=== PATIENT | male | born 1935 | race African-American/Black ===

== ENCOUNTER → 2017-09-27 | Outpatient (CLI) | payer MEDICARE, MEDICAID ==
[~2017-09-27] VITALS: Ht 180.3 cm; Wt 98.0 kg
[~2017-09-27] MED LIST: ALLO100T PO; ASPI-1182 PO; CHOL200016 PO; LEVE250T2 PO; LEVE250T55 PO; MULT-1259 PO; OLME1TAB28 PO; ROSU20 PO; TAMS0.4C32 PO
[2017-09-27 10:13] VITALS: BP 142/75
== END | disposition home or self-care (01) ==
LOC: SRCNTR 10:11
PROVIDERS: ATTEND Internal Medicine Cardiovascular Disease
DX: I11.9 Hypertensive heart disease without heart failure (principal); E78.00 Pure hypercholesterolemia, unspecified; G40.909 Epilepsy, unspecified, not intractable, without status epilepticus; M10.9 Gout, unspecified; Z86.73 Personal history of transient ischemic attack (TIA), and cerebral infarction without residual deficits
CPT/HCPCS: G0463

== ENCOUNTER → 2018-01-11 | Outpatient (CLI) | payer MEDICARE ==
[~2018-01-11] MED LIST changes: -CHOL200016 PO; +CHOL200059 PO
[2018-01-11 11:05] LABS: APPEARANCE,URINE CLEAR (CLEAR); BILIRUBIN,URINE NEGATIVE (NEGATIVE); GLUCOSE, URINE (UA) NEGATIVE (NEGATIVE); KETONES,URINE NEGATIVE (NEGATIVE); LEUKOCYTE ESTERASE ,URINE NEGATIVE (NEGATIVE); NITRATE,URINE NEGATIVE (NEGATIVE); PH,URINE 5.5 (5.0-8.0); PROTEIN,URINE SEE CONFIRM (NEGATIVE)
[2018-01-11 11:24] LABS: ALBUMIN 3.9 g/dL (3.4-5.0); BILIRUBIN,TOTAL 0.4 mg/dL (0.1-1.0); CREATININE 2.23 mg/dL (0.60-1.30); POTASSIUM 4.2 mmol/L (3.5-5.1); THYROID STIMULATING HORMONE 1.95 uIU/mL (0.36-3.74); TOTAL PROTEIN, SERUM 7.8 g/dL (6.4-8.2)
[2018-01-11 11:33] LABS: PROSTATE SPECIFIC ANTIGEN 4.64 ng/mL (0.00-4.00)
[2018-01-11 12:14] LABS: BACTERIA,URINE None Seen /HPF (None Seen); OCCULT BLOOD,URINE TRACE (NEGATIVE); RBC,URINE 0-2 /HPF (0-2); SULFOSALICYLIC ACID,URINE Trace (Negative); WBC,URINE None Seen /HPF (0-5)
== END | disposition home or self-care (01) ==
LOC: LABPV 09:50
PROVIDERS: ATTEND Internal Medicine Cardiovascular Disease
DX: I10 Essential (primary) hypertension (principal); N40.0 Benign prostatic hyperplasia without lower urinary tract symptoms; Z79.899 Other long term (current) drug therapy
CPT/HCPCS: 36415; 80053; 80061; 81001; 81002; 84153; 84443; G0482

== ENCOUNTER → 2018-04-01 | Outpatient (CLI) | payer MEDICARE ==
[~2018-04-01] VITALS: Ht 180.3 cm; Wt 96.5 kg
[~2018-04-01] MED LIST changes: -ROSU20 PO; +ROSU20TA23 PO
[2018-04-01 09:13] VITALS: BP 145/81
== END | disposition home or self-care (01) ==
LOC: SRCNTR 09:12
PROVIDERS: ATTEND Hospitalist
DX: E78.5 Hyperlipidemia, unspecified (principal); I10 Essential (primary) hypertension; N40.1 Benign prostatic hyperplasia with lower urinary tract symptoms; M10.9 Gout, unspecified
CPT/HCPCS: G0463

== ENCOUNTER → 2019-02-14 | Outpatient (CLI) | payer MEDICARE, MEDICAID ==
[~2019-02-14] MED LIST changes: -LEVE250T2 PO; -LEVE250T55 PO; -MULT-1259 PO; -TAMS0.4C32 PO
[2019-02-14 12:28] LABS: BASOPHILS % (AUTO) 0.6 % (0.0-2.0); EOSINOPHILS % (AUTO) 1.8 % (1.0-6.0); HEMATOCRIT 33.5 % (41-53); HEMOGLOBIN 11.1 g/dL (13.5-17.5); LYMPHOCYTES # (AUTO) 0.8 K/uL (1.0-4.8); LYMPHOCYTES % (AUTO) 29.5 % (22.0-44.0); MEAN CORPUSCULAR HGB CONC 33.1 G/dL (31.0-37.0); MEAN CORPUSCULAR VOLUME 88 fL (80-100); MONOCYTES # (AUTO) 0.3 K/uL (0.1-1.0); MONOCYTES % (AUTO) 10.8 % (2.0-9.0); NEUTROPHILS # (AUTO) 1.6 K/uL (1.8-7.7); NEUTROPHILS % (AUTO) 57.3 % (40.0-70.0); PLATELET COUNT (AUTO) 155 K/uL (150-450); RED BLOOD CELL COUNT(AUTO) 3.82 MIL/uL (4.50-5.90); RED CELL DISTRIBUTION WIDTH 15.3 % (11.5-14.5)
[2019-02-14 12:34] LABS: HEMOGLOBIN A1C 5.6 % (4.5-6.2)
[2019-02-14 12:53] LABS: ALBUMIN 3.6 g/dL (3.4-5.0); BILIRUBIN,TOTAL 0.5 mg/dL (0.1-1.0); CALCIUM, TOTAL 9.2 mg/dL (8.8-10.5); CHOL/HDL RATIO 2.9 (4.2-7.3); CREATININE 2.93 mg/dL (0.60-1.30); FREE T4 (FREE THYROXINE) 0.81 ng/dL (0.76-1.46); POTASSIUM 3.9 mmol/L (3.5-5.1); THYROID STIMULATING HORMONE 1.44 uIU/mL (0.36-3.74); TOTAL PROTEIN, SERUM 7.4 g/dL (6.4-8.2)
[2019-02-14 13:01] LABS: PROSTATE SPECIFIC ANTIGEN 4.24 ng/mL (0.00-4.00)
== END | disposition home or self-care (01) ==
LOC: LABPV 09:40
PROVIDERS: ATTEND Hospitalist
DX: Z12.5 Encounter for screening for malignant neoplasm of prostate (principal); I11.0 Hypertensive heart disease with heart failure; I50.9 Heart failure, unspecified; E78.00 Pure hypercholesterolemia, unspecified; Z79.899 Other long term (current) drug therapy
CPT/HCPCS: 36415; 80053; 80061; 83036; 84439; 84443; 85025; G0103; 84153

== ENCOUNTER → 2019-03-30 | Outpatient (CLI) | payer MEDICARE, MEDICAID ==
[~2019-03-30] VITALS: Ht 177.8 cm; Wt 93.0 kg
[~2019-03-30] MED LIST changes: +ASPI-1111 PO; -ASPI-1182 PO; +CHOL200016 PO; -CHOL200059 PO
[2019-03-30 12:15] VITALS: BP 109/69
== END | disposition home or self-care (01) ==
LOC: SRCNTR 12:14
PROVIDERS: ATTEND Hospitalist
DX: I12.9 Hypertensive chronic kidney disease with stage 1 through stage 4 chronic kidney disease, or unspecified chronic kidney disease (principal); N18.9 Chronic kidney disease, unspecified; E78.5 Hyperlipidemia, unspecified; M10.9 Gout, unspecified; N40.1 Benign prostatic hyperplasia with lower urinary tract symptoms; G40.909 Epilepsy, unspecified, not intractable, without status epilepticus
CPT/HCPCS: G0463

== ENCOUNTER → 2019-04-24 | Outpatient (CLI) | payer MEDICARE, MEDICAID ==
[2019-04-24 12:33] LABS: BASOPHILS % (AUTO) 0.5 % (0.0-2.0); EOSINOPHILS % (AUTO) 2.3 % (1.0-6.0); HEMATOCRIT 34.8 % (41-53); HEMOGLOBIN 11.5 g/dL (13.5-17.5); LYMPHOCYTES % (AUTO) 33.4 % (22.0-44.0); MEAN CORPUSCULAR HEMOGLOBIN 29.1 pg (26.0-34.0); MEAN CORPUSCULAR HGB CONC 32.9 G/dL (31.0-37.0); MEAN CORPUSCULAR VOLUME 88 fL (80-100); MONOCYTES # (AUTO) 0.3 K/uL (0.1-1.0); MONOCYTES % (AUTO) 8.4 % (2.0-9.0); NEUTROPHILS # (AUTO) 1.7 K/uL (1.8-7.7); NEUTROPHILS % (AUTO) 55.4 % (40.0-70.0); PLATELET COUNT (AUTO) 156 K/uL (150-450); RED BLOOD CELL COUNT(AUTO) 3.94 MIL/uL (4.50-5.90); RED CELL DISTRIBUTION WIDTH 15.5 % (11.5-14.5)
[2019-04-24 12:50] LABS: HEMOGLOBIN A1C 5.9 % (3.8-5.6)
[2019-04-24 12:56] LABS: ALBUMIN 3.9 g/dL (3.4-5.0); BILIRUBIN,TOTAL 0.4 mg/dL (0.1-1.0); CALCIUM, TOTAL 9.8 mg/dL (8.8-10.5); CHOL/HDL RATIO 3.3 (4.2-7.3); CREATININE 2.43 mg/dL (0.60-1.30); FREE T4 (FREE THYROXINE) 0.77 ng/dL (0.76-1.46); POTASSIUM 4.2 mmol/L (3.5-5.1); THYROID STIMULATING HORMONE 1.73 uIU/mL (0.36-3.74); TOTAL PROTEIN, SERUM 7.7 g/dL (6.4-8.2)
[2019-04-24 13:02] LABS: PROSTATE SPECIFIC ANTIGEN 3.83 ng/mL (0.00-4.00)
[2019-04-24 13:19] LABS: APPEARANCE,URINE CLEAR (CLEAR); BILIRUBIN,URINE NEGATIVE (NEGATIVE); GLUCOSE, URINE (UA) NEGATIVE (NEGATIVE); KETONES,URINE NEGATIVE (NEGATIVE); LEUKOCYTE ESTERASE ,URINE NEGATIVE (NEGATIVE); NITRATE,URINE NEGATIVE (NEGATIVE); OCCULT BLOOD,URINE NEGATIVE (NEGATIVE); PROTEIN,URINE SEE CONFIRM (NEGATIVE)
[2019-04-24 13:35] LABS: SULFOSALICYLIC ACID,URINE Trace (Negative)
[2019-04-24 13:36] LABS: BACTERIA,URINE None Seen /HPF (None Seen); RBC,URINE None Seen /HPF (0-2); SQUAMOUS EPITHELIAL CELL,UR None Seen /LPF (None Seen); WBC,URINE None Seen /HPF (0-5)
== END | disposition home or self-care (01) ==
LOC: LABPV 09:25
PROVIDERS: ATTEND Internal Medicine Nephrology
DX: E11.22 Type 2 diabetes mellitus with diabetic chronic kidney disease (principal); N18.4 Chronic kidney disease, stage 4 (severe); N40.1 Benign prostatic hyperplasia with lower urinary tract symptoms
CPT/HCPCS: 83036; 84153; 84439; 84443; 87086